=== PATIENT | female | born 1955 | race Caucasian/White ===

== ENCOUNTER 2018-06-26 16:41 | Inpatient (IN) | payer OTHER ==
--- NOTE | 2018-06-26 16:42 | HP ---
SUPERVISING PHYSICIAN: Som Meyer M.D. CHIEF COMPLAINT: Worsening shortness of breath and fever. HISTORY OF PRESENT ILLNESS: Ms. Valdez is a 62 year-old female patient of Dr. Salgado. She presented to Dr. Reilly's office today after she had been having 1 to 2 weeks of worsening symptoms that included body aches, chest congestion, subjective fever and ongoing productive purulent sputum with increasing shortness of breath both at rest and on exertion. She denied any ill contacts. Initial workup in the clinic on x-ray showed questionable bilateral pneumonia. Initial vital signs in the clinic showed that she was tachypneic with respirations greater than 25 with obvious shortness of breath, satting in the high 80s to low 90s on room air at rest. Given the patient's symptomology and findings on chest x-ray with concerns for community acquired pneumonia, Dr. Reilly requested the patient be directly admitted for ongoing treatment of community acquired pneumonia. PAST MEDICAL HISTORY: 1. Hypertension. 2. Hypothyroidism on supplementation. 3. History of asthma. PAST SURGICAL HISTORY: 1. Cholecystectomy in 2002. 2. Hysterectomy in 1985. 3. Two sections, on in 1932 and one 1875. CURRENT MEDICATIONS: 1. Ferrous sulfate iron supplement 1 capsule daily. 2. Synthroid 125 mcg daily. 3. Vitamin B12 injection 1,000 mcg monthly. 4. Amlodipine 5 mg as needed at bedtime. 5. Albuterol inhaler 2.5 mg q.i.d. as needed. ALLERGIES: ERYTHROMYCIN, MORPHINE AND SULFA ANTIBIOTICS. FAMILY HISTORY: Father at age 89 due to natural causes. Mother at age 39 secondary to brain tumor. She had 2 sisters and 2 brother, all healthy, but one older sister who has a history of atrial fibrillation and breast cancer. She has 2 children that are all healthy. SOCIAL HISTORY: The patient is a realtor. She lives in [place]. She is . She has 2 children. She denies alcohol. She has never smoked tobacco. She does not use illicit drugs. REVIEW OF SYSTEMS: CONSTITUTIONAL: Positive for fatigue, subjective fever and chills. Negative for unintentional weight loss. HEENT: Positive for ear aches bilaterally with nasal congestion, rhinorrhea and cough. Negative for sore throat. RESPIRATORY: Positive for increasing cough, productive sputum with increasing weakness and dyspnea. CARDIOVASCULAR: Negative for chest pains, palpitations, syncopal episodes or peripheral edema. GASTROINTESTINAL: Positive for nausea secondary to nasal drainage but negative for constipation, diarrhea or abdominal pains. SKIN: Negative for jaundice, rashes, lesions. NEUROLOGIC: Positive for headaches. Negative for ataxia, seizures, generalized weakness or other neurological deficits. PHYSICAL EXAMINATION: VITAL SIGNS: On admission, low-grade temperature of 99.4, heart rate 85, blood pressure 111/76, satting 97% at rest on room air, respirations between 18 and 23. In the clinic, she was noted to be mildly hypoxic with O2 saturations showing at 88 to 92% on room air at rest, secondary to with respirations greater than 25 with obvious shortness of breath. No respiratory distress. Admission weight 66.2 kg. GENERAL: The patient is ill-appearing. She appears to be well hydrated, well nourished. She appears to be slightly anxious in no obvious distress, but is showing some evidence of increased work of breathing, but improving with breathing treatments. HEENT: Tympanic membranes were clear bilaterally. Oropharynx was pink with posterior oropharynx being mildly erythematous, but no lesions, rashes or drainage. Nares were showing bilateral congestion with clear drainage. NECK: Supple, non-tender. Full range of motion. No jugular venous distention. CHEST: Lung sounds were diminished with some mild inspiratory and expiratory wheezing and faint rhonchi heard on the right lateral posterior aspect compared to the left. No rales. CARDIOVASCULAR: Regular rate and rhythm without appreciable murmurs, gallops, or rubs. ABDOMEN: Soft, non-tender. Positive bowel sounds. EXTREMITIES: Without any clubbing, cyanosis or edema. NEUROLOGIC: She is alert and oriented times three. Cranial nerves II-XII are grossly intact. SKIN: [place], warm and dry with no lesions or rashes noted. LABORATORY: White count was showing to be 10,800 but with a left shift. Hemoglobin 11.3, hematocrit 34.3, platelet count 390,000. Differential again showed a left shift. Chemistries showed just a mildly low potassium at 3.5, BUN 7, creatinine 0.74, lactic acid 0.9, magnesium was low at 1.6. Liver functions all were within normal limits. Urinalysis is pending. MICROBIOLOGY: Blood culture is pending. Sputum culture is pending. RADIOLOGY: Chest x-ray in the clinic showed bibasilar infiltrates per Dr. Reilly's interpretation. ASSESSMENT: 1. Exacerbation of asthma with developing community acquired pneumonia. 2. Electrolyte imbalance with hypokalemia. 3. Hypothyroidism on supplementation. 4. Hypertension, controlled. PLAN: The patient will be directly admitted to the Medical/Surgical floor for ongoing treatment of community acquired pneumonia, bilateral presentation with exacerbation of asthma. I did start her on a single dose of Solu-Medrol with q.i.d. DuoNeb treatments and chest percussive therapy as tolerated. She will be on antibiotic coverage with Rocephin and doxycycline given her allergies to erythromycin. Will await culture results both on sputum and blood cultures to further target antibiotic therapy. Will repeat labs in the morning, including a CBC, BMP as well as repeat chest x-ray. She will be on DVT prophylaxis as per protocol. Will review and verify her medications and resume as appropriate. Will anticipate her length of stay to be at least 2 to 3 days. Until she can transition back to outpatient management on oral antibiotic therapy, will continue to monitor and treat as needed. #[id number] [facility]
[2018-06-26] MEDS ORDERED: ALBUTEROL SULFATE 2.5 MG/3 ML VIAL NEB PRN (16:58)
[2018-06-26] MEDS ORDERED: MAGNESIUM HYDROXIDE 30 ML UD PO PRN (16:58)
[2018-06-26] MEDS ORDERED: SODIUM CHLORIDE 0.9% (FLUSH) 10 ML SYG IV PRN (16:58)
[2018-06-26] MEDS ORDERED: methylPREDNISolone SODIUM SUC 125 MG/2 ML VIAL IV ONE (17:04)
[2018-06-26] MEDS: IPRATROPIUM/ALBUTEROL 3 ML VIAL INH SCH ×2 (17:12→21:05)
[2018-06-26] MEDS ORDERED: SODIUM CHL 0.9% 50ML MIN-BAG+ 50 ML IVPB ONE (17:52)
[2018-06-26] MEDS ORDERED: DOXYCYCLINE HYCLATE IV 100 MG VIAL IVPB ONE ×2 (17:52→19:29)
[2018-06-26] MEDS ORDERED: cefTRIAXone SODIUM 1 GM VIAL ONE (17:52)
[2018-06-26] MEDS ORDERED: SODIUM CHLORIDE 0.9% 250ML 250 ML ONE ×2 (17:53→19:29)
[2018-06-26] MEDS: ACETAMINOPHEN 325 MG TAB PO PRN (18:05)
[2018-06-26] MEDS: IV SET AND CAP CHANGE INJ INJ SCH (18:06)
[2018-06-26] MEDS: cefTRIAXone SODIUM 1 GM in SODIUM CHL 0.9% 50ML MIN-BAG+ 50 ML IVPB SCH (18:06)
[2018-06-26] MEDS: DOXYCYCLINE HYCLATE IV 100 MG in SODIUM CHLORIDE 0.9% 250ML 250 ML IVPB SCH (18:06)
[2018-06-26] MEDS ORDERED: MAGNESIUM SULFATE PREMIX 2GM 2 GM in PREMIX BAG 1 BAG IVPB ONE (19:41)
[2018-06-26] MEDS ORDERED: MAGNESIUM SULFATE PREMIX 2GM 50 ML IVPB ONE (20:07)
[2018-06-26] MEDS: BUDESONIDE NEBS 0.5 MG/2 ML VIAL NEB SCH (21:05)
[2018-06-26] MEDS: PROMETHAZINE W/CODEINE SYR 5 ML UD PO PRN (22:37)
[2018-06-27] MEDS: ACETAMINOPHEN 325 MG TAB PO PRN ×4 (00:15→21:31)
[2018-06-27] MEDS ORDERED: LEVOTHYROXINE SODIUM 0.1 MG TAB ONE ×2 (05:30→19:07)
[2018-06-27] MEDS ORDERED: LEVOTHYROXINE SODIUM 0.025 MG TAB ONE ×2 (05:30→19:07)
[2018-06-27] MEDS: DOXYCYCLINE HYCLATE IV 100 MG in SODIUM CHLORIDE 0.9% 250ML 250 ML IVPB SCH ×2 (05:35→17:20)
[2018-06-27] MEDS: LEVOTHYROXINE SODIUM 0.1 MG, LEVOTHYROXINE SODIUM 0.025 MG PO SCH ×2 (06:04)
[2018-06-27] MEDS: PANTOPRAZOLE SODIUM IV 40 MG VIAL IV SCH (06:04)
--- NOTE | 2018-06-27 07:23 | RAD ---
CHEST 06/27/2018 CLINICAL HISTORY: Pneumonia COMPARISON: None TECHNIQUE: Frontal and lateral Chest. FINDINGS: There are patchy airspace densities within both lower lobes and lingula consistent with pneumonia. No pleural fluid. No edema. No pneumothorax. Heart is normal in size. Normal cardiomediastinal contours. Small focus of right upper lobe pneumonitis. Unremarkable soft tissues. Intact bones. Surgical clips in the upper abdomen from prior cholecystectomy. IMPRESSION: 1. Bilateral lower lobe and lingula pneumonia. Small focus of right upper lobe pneumonia. Electronically signed by: Clarissa Joseph DO 06/27/2018 7:20 AM CDT
[2018-06-27] MEDS: ENOXAPARIN SODIUM 40 MG/0.4 ML SYG SUBCU SCH (08:25)
[2018-06-27] MEDS: BUDESONIDE NEBS 0.5 MG/2 ML VIAL NEB SCH ×2 (08:34→20:01)
[2018-06-27] MEDS: IPRATROPIUM/ALBUTEROL 3 ML VIAL INH SCH ×4 (08:34→20:01)
[2018-06-27] MEDS ORDERED: NON-FORMULARY MEDICATION 1 EA MIS (Levothyroxine Sodium [Synthroid] 125 MCG) PO SCH (09:00)
[2018-06-27] MEDS: guaiFENesin ER TAB 600 MG TAB PO SCH ×2 (15:25→21:31)
[2018-06-27] MEDS ORDERED: SODIUM CHL 0.9% 50ML MIN-BAG+ 50 ML IVPB ONE (16:35)
[2018-06-27] MEDS ORDERED: cefTRIAXone SODIUM 1 GM VIAL ONE (16:36)
[2018-06-27] MEDS: cefTRIAXone SODIUM 1 GM in SODIUM CHL 0.9% 50ML MIN-BAG+ 50 ML IVPB SCH (16:40)
[2018-06-27] MEDS ORDERED: SODIUM CHLORIDE 0.9% 250ML 250 ML ONE ×2 (17:15→19:07)
[2018-06-27] MEDS ORDERED: DOXYCYCLINE HYCLATE IV 100 MG VIAL IVPB ONE ×2 (17:15→19:08)
[2018-06-27] MEDS: PROMETHAZINE W/CODEINE SYR 5 ML UD PO PRN (21:31)
[2018-06-28] MEDS: DOXYCYCLINE HYCLATE IV 100 MG in SODIUM CHLORIDE 0.9% 250ML 250 ML IVPB SCH ×2 (05:40→17:38)
[2018-06-28] MEDS: guaiFENesin W/CODEINE LIQ 10 ML UD PO PRN ×2 (05:47→15:54)
[2018-06-28] MEDS: LEVOTHYROXINE SODIUM 0.1 MG, LEVOTHYROXINE SODIUM 0.025 MG PO SCH ×2 (06:08)
[2018-06-28] MEDS: PANTOPRAZOLE SODIUM IV 40 MG VIAL IV SCH (06:08)
--- NOTE | 2018-06-28 07:57 | PN ---
SUPERVISING PHYSICIAN: Som Meyer MD DATE: 06/27/18 SUBJECTIVE: The patient has had a fairly restless night. She was not able to sleep and had a significant cough throughout the night, even though she was given some Phenergan and codeine. I explained to her that part of the restlessness probably was the single dose of Solu-Medrol. She has had no nausea or vomiting, no chest pain. OBJECTIVE: VITAL SIGNS: Temperature 97.6, pulse 94, blood pressure 120/65, respirations 20, saturation 94% on room air. Weight 56.9 kg. GENERAL: The patient is resting comfortably, visiting with family members. She is alert. CHEST: Lung sounds are diminished with bilateral rhonchi more prominent on the left, more so on the posterolateral aspect. No wheezing or rales noted. HEART: Regular rate and rhythm. ABDOMEN: Soft, non-tender, positive bowel sounds. EXTREMITIES: Without edema. NEUROLOGICAL: She is alert and oriented x3. LABORATORY: White count is 8,100, hemoglobin stable at 11.8, hematocrit 35.5. Platelet count 412,000, differential did show a left shift. Chemistries show normal electrolytes with 4.1 potassium and BUN of 8, creatinine 0.75. Liver functions all within normal limits. MICROBIOLOGY: Blood cultures pending, negative at 24 hours. RADIOLOGY: Chest x-ray, 2-view chest, per radiology interpretation shows bilateral lower lobe and lingular pneumonia with a small focus of right lower lobe pneumonia. ASSESSMENT: 1. Bilateral pneumonia, community acquired with exacerbation of asthma.. 2. Electrolyte imbalance with hypokalemia, resolved with fluids. 3. Hypothyroidism. 4. Hypertension, controlled. PLAN: The patient will be continued on antibiotics for bilateral pneumonia, community acquired, with Rocephin and doxycycline given that she is allergic to mycin. I did discuss with her that if she does not improve clinically, we may need to change to Levaquin to have better coverage for atypicals but at this point I think we are fairly well covered. She continues on t.i.d. Duoneb treatments and chest percussion therapy. Will follow labs and x-rays as needed. We will anticipate hopefully discharging by Tuesday and until she can transition to outpatient management we will continue to monitor and treat as needed. #[id number] [facility]
[2018-06-28] MEDS: ACETAMINOPHEN 325 MG TAB PO PRN ×2 (08:02→11:51)
[2018-06-28] MEDS: guaiFENesin ER TAB 600 MG TAB PO SCH ×2 (08:19→20:30)
[2018-06-28] MEDS: ENOXAPARIN SODIUM 40 MG/0.4 ML SYG SUBCU SCH (08:19)
[2018-06-28] MEDS: BUDESONIDE NEBS 0.5 MG/2 ML VIAL NEB SCH ×2 (08:48→20:00)
[2018-06-28] MEDS: IPRATROPIUM/ALBUTEROL 3 ML VIAL INH SCH ×4 (08:48→20:00)
[2018-06-28] MEDS ORDERED: cefTRIAXone SODIUM 1 GM in SODIUM CHL 0.9% 50ML MIN-BAG+ 50 ML IVPB ONE (09:30)
[2018-06-28] MEDS ORDERED: SODIUM CHL 0.9% 50ML MIN-BAG+ 50 ML IVPB ONE ×2 (09:36→16:45)
[2018-06-28] MEDS ORDERED: cefTRIAXone SODIUM 1 GM VIAL ONE ×2 (09:37→16:46)
--- NOTE | 2018-06-28 10:29 | PN ---
SUPERVISING PHYSICIAN: Adam Meyer MD DATE: 06/28/18 SUBJECTIVE: The patient is sitting up in bed. Family is at the bedside. She continues complaints of mild dry cough, but guaifenesin is helping. She does have problems with chronic constipation, but nothing significant at this time. She was concerned that Rocephin dose was not hooked up to her IV this morning and ended up on the floor, so I will give her an additional dose of that today. Otherwise, she denies shortness of breath, chest pain, nausea or vomiting. OBJECTIVE: VITAL SIGNS: Temperature 98.8. Heart rate 83. Blood pressure 111/69. Respiratory rate 18. O2 saturation 92% on room air. RESPIRATORY: Scattered rhonchi throughout with no expiratory wheezing or crackles. CARDIAC: Regular rate and rhythm. GASTROINTESTINAL: Abdomen is soft, nondistended, nontender. Bowel sounds are positive. NEUROLOGIC: Awake, alert and oriented times three. LABORATORY: Preliminary blood cultures show no growth after 24 hours. All other labs and films have been reviewed via the EMR. ASSESSMENT: 1. Bilateral pneumonia, community acquired with exacerbation of asthma.. 2. Electrolyte imbalance with hypokalemia, resolved with fluids. 3. Hypothyroidism. 4. Hypertension, controlled. PLAN: We will continue present supportive care. We will continue her antibiotics for bilateral pneumonia. I have given her an extra dose of Rocephin today since her Rocephin was not infused this morning. She will continue with the doxycycline. I have encouraged good pulmonary hygiene as well as to get up and ambulate as much as possible. I have ordered lab and x-ray for in the morning. Hopefully she can be discharged tomorrow or the next day. We will continue to monitor the patient closely and follow as needed. #[id number] [facility]
[2018-06-28] MEDS ORDERED: ACETAMINOPHEN 325 MG TAB PO ONE (11:44)
[2018-06-28] MEDS: ONDANSETRON INJ 4 MG/2 ML VIAL IV PRN (11:52)
[2018-06-28] MEDS ORDERED: ALOE VERA CAPSULE PO PRN (15:37)
[2018-06-28] MEDS: HYDROcodone 5MG/APAP 325MG 1 EA TAB PO PRN ×2 (16:16→20:27)
[2018-06-28] MEDS: cefTRIAXone SODIUM 1 GM in SODIUM CHL 0.9% 50ML MIN-BAG+ 50 ML IVPB SCH (16:50)
[2018-06-28] MEDS ORDERED: methylPREDNISolone SODIUM SUC 125 MG/2 ML VIAL IV ONE (17:19)
[2018-06-28] MEDS ORDERED: DOXYCYCLINE HYCLATE IV 100 MG VIAL IVPB ONE ×2 (17:30→19:35)
[2018-06-28] MEDS ORDERED: SODIUM CHLORIDE 0.9% 250ML 250 ML ONE ×2 (17:31→19:34)
[2018-06-28] MEDS ORDERED: LEVOTHYROXINE SODIUM 0.1 MG TAB ONE (19:34)
[2018-06-28] MEDS ORDERED: LEVOTHYROXINE SODIUM 0.025 MG TAB ONE (19:34)
[2018-06-28] MEDS: MELATONIN 5 MG TABLET PO SCH (20:30)
[2018-06-28] MEDS ORDERED: MELATONIN 3 MG TAB PO SCH (21:00)
[2018-06-28] MEDS: TEMAZEPAM 15 MG CAP PO PRN (21:44)
[2018-06-28] MEDS: methylPREDNISolone SODIUM SUC 125 MG/2 ML VIAL IV SCH (21:45)
[2018-06-29] MEDS: DOXYCYCLINE HYCLATE IV 100 MG in SODIUM CHLORIDE 0.9% 250ML 250 ML IVPB SCH ×2 (06:04→17:24)
[2018-06-29] MEDS: methylPREDNISolone SODIUM SUC 125 MG/2 ML VIAL IV SCH (06:07)
[2018-06-29] MEDS: LEVOTHYROXINE SODIUM 0.1 MG, LEVOTHYROXINE SODIUM 0.025 MG PO SCH ×2 (06:08)
[2018-06-29] MEDS: PANTOPRAZOLE SODIUM IV 40 MG VIAL IV SCH (06:08)
[2018-06-29] MEDS: HYDROcodone 5MG/APAP 325MG 1 EA TAB PO PRN ×3 (06:26→20:41)
--- NOTE | 2018-06-29 07:52 | RAD ---
EXAM DESCRIPTION: Chest,2 Views CLINICAL HISTORY: 62 years Female, pna COMPARISON: 06/27/2018 IMPRESSION: The cardiomediastinal silhouette is stable in size. Multifocal bibasilar airspace consolidation again demonstrated. Consolidation is slightly worsened in the right lower lung zone and left perihilar lung zone. The findings remain most consistent with multifocal pneumonia. Small bilateral pleural effusions suspected. No pneumothorax. No acute osseous abnormality. Electronically signed by: Eduardo Cooper MD 06/29/2018 7:49 AM CDT
[2018-06-29] MEDS: IPRATROPIUM/ALBUTEROL 3 ML VIAL INH SCH ×4 (08:02→19:30)
[2018-06-29] MEDS: BUDESONIDE NEBS 0.5 MG/2 ML VIAL NEB SCH ×2 (08:02→19:30)
[2018-06-29] MEDS: ONDANSETRON INJ 4 MG/2 ML VIAL IV PRN ×3 (08:35→19:43)
[2018-06-29] MEDS: guaiFENesin ER TAB 600 MG TAB PO SCH ×2 (08:36→20:40)
[2018-06-29] MEDS: ENOXAPARIN SODIUM 40 MG/0.4 ML SYG SUBCU SCH (08:36)
--- NOTE | 2018-06-29 10:38 | PN ---
SUPERVISING PHYSICIAN: Adam Meyer MD DATE: 06/29/18 SUBJECTIVE: The patient is sitting up in bed. Her is at the bedside. She continues complaints of extreme weakness and shortness of breath. Her coughing has improved. We discussed pneumonia and her plan of care. Otherwise, she denies chest pain, nausea, vomiting, constipation or diarrhea. OBJECTIVE: VITAL SIGNS: Temperature 98.2. Heart rate 95. Blood pressure 130/80. Respiratory rate 16. O2 saturation 91% on room air. RESPIRATORY: Scattered rhonchi throughout. She does get slightly tachypneic at times, but mostly with talking. CARDIAC: Regular rate and rhythm. GASTROINTESTINAL: Abdomen is soft, nondistended, nontender. Bowel sounds are positive. NEUROLOGIC: Awake, alert and oriented times three. LABORATORY: WBCs 10,000, hemoglobin 11, hematocrit 33.9. Neutrophils 90.9. Electrolytes are basically within normal limits. Preliminary blood cultures show no growth after 48 hours. Sputum culture is negative. Chest x-ray shows multifocal bibasilar airspace consolidation again demonstrated. Consolidation is slightly worsened in the right lower lung zone and left perihilar lung zone. The findings remain most consistent with multifocal pneumonia. Small bilateral pleural effusions suspected and no pneumothorax. No acute osseus abnormality. All other labs and films have been reviewed via the EMR. ASSESSMENT: 1. Bilateral pneumonia, community acquired with exacerbation of asthma. 2. Electrolyte imbalance with hypokalemia, resolved with fluids. 3. Hypothyroidism. 4. Hypertension, controlled. PLAN: We will continue present supportive care. I have also ordered extra CPT and aggressive pulmonary hygiene. I will titrate down her IV steroids. Hopefully in the next day or so, she can go to p.o. steroids. We will also monitor her cultures as well as her clinical response. I have encouraged her to ambulate in the halls. I have ordered a chest x-ray for in the morning. Otherwise, we will continue to monitor the patient closely and follow as needed. [facility][id number] [facility]
[2018-06-29] MEDS: methylPREDNISolone SODIUM SUC 40 MG/ML VIAL IV SCH ×2 (13:33→21:20)
[2018-06-29] MEDS ORDERED: SODIUM CHL 0.9% 50ML MIN-BAG+ 50 ML IVPB ONE (16:14)
[2018-06-29] MEDS ORDERED: cefTRIAXone SODIUM 1 GM VIAL ONE (16:15)
[2018-06-29] MEDS: cefTRIAXone SODIUM 1 GM in SODIUM CHL 0.9% 50ML MIN-BAG+ 50 ML IVPB SCH (16:45)
[2018-06-29] MEDS ORDERED: SODIUM CHLORIDE 0.9% 250ML 250 ML ONE ×2 (17:19→19:04)
[2018-06-29] MEDS ORDERED: DOXYCYCLINE HYCLATE IV 100 MG VIAL IVPB ONE ×2 (17:19→19:05)
[2018-06-29] MEDS: IV SET AND CAP CHANGE INJ INJ SCH (17:45)
[2018-06-29] MEDS ORDERED: LEVOTHYROXINE SODIUM 0.025 MG TAB ONE (19:04)
[2018-06-29] MEDS ORDERED: LEVOTHYROXINE SODIUM 0.1 MG TAB ONE (19:04)
[2018-06-29] MEDS ORDERED: PANTOPRAZOLE SODIUM IV 40 MG VIAL ONE (19:05)
[2018-06-29] MEDS: TEMAZEPAM 15 MG CAP PO PRN (20:40)
[2018-06-29] MEDS: PROMETHAZINE W/CODEINE SYR 5 ML UD PO PRN (20:40)
[2018-06-29] MEDS: MELATONIN 5 MG TABLET PO SCH (20:41)
[2018-06-30] MEDS: DOXYCYCLINE HYCLATE IV 100 MG in SODIUM CHLORIDE 0.9% 250ML 250 ML IVPB SCH (05:23)
[2018-06-30] MEDS: LEVOTHYROXINE SODIUM 0.1 MG, LEVOTHYROXINE SODIUM 0.025 MG PO SCH ×2 (06:12)
[2018-06-30] MEDS: PANTOPRAZOLE SODIUM IV 40 MG VIAL IV SCH (06:12)
[2018-06-30] MEDS: methylPREDNISolone SODIUM SUC 40 MG/ML VIAL IV SCH (06:13)
[2018-06-30] MEDS ORDERED: PANTOPRAZOLE SODIUM TAB 40 MG PO SCH (06:30)
[2018-06-30 06:37] VITALS: BP 119/69; TEMP 98
--- NOTE | 2018-06-30 07:03 | RAD ---
Chest 2 view on 06/30/2018 CLINICAL INDICATION: Pneumonia COMPARISON: 06/29/2018 FINDINGS: There has been no significant change in bilateral mid and lower lung opacities consistent with bilateral pneumonia. Cardiac, hilar and mediastinal contours are within normal limits. No bony abnormality is noted. IMPRESSION: No significant change in the appearance of the chest. Electronically signed by: Johnathan Bryant 06/30/2018 6:59 AM CDT
[2018-06-30] MEDS: ONDANSETRON INJ 4 MG/2 ML VIAL IV PRN (07:33)
[2018-06-30] MEDS: HYDROcodone 5MG/APAP 325MG 1 EA TAB PO PRN (07:34)
[2018-06-30] MEDS: guaiFENesin ER TAB 600 MG TAB PO SCH (08:35)
[2018-06-30] MEDS: ENOXAPARIN SODIUM 40 MG/0.4 ML SYG SUBCU SCH (08:38)
[2018-06-30] MEDS ORDERED: predniSONE 20 MG TAB PO SCH (09:00)
[2018-06-30] MEDS: BUDESONIDE NEBS 0.5 MG/2 ML VIAL NEB SCH (09:35)
[2018-06-30] MEDS: IPRATROPIUM/ALBUTEROL 3 ML VIAL INH SCH (09:35)
[2018-06-30 11:12] VITALS: O2SAT 99
--- NOTE | 2018-07-02 20:55 | DS ---
SUPERVISING PHYSICIAN: Som Meyer M.D. ADMISSION DIAGNOSIS: 1. Exacerbation of asthma with developing community acquired pneumonia. 2. Electrolyte imbalance with hypokalemia. 3. Hypothyroidism on supplementation. 4. Hypertension, controlled. DISCHARGE DIAGNOSIS: 1. Bilateral pneumonia, community acquired with exacerbation of asthma, improving with more aggressive treatment with corticosteroids, antibiotics and chest percussive therapy. 2. Electrolyte imbalance with hypokalemia, resolved with fluids. 3. Hypothyroidism. 4. Hypertension, controlled. REASON FOR HOSPITALIZATION: Ms. Valdez is a 62 year-old female patient of Dr. Salgado. She presented to Dr. Reilly's office today after she had been having 1 to 2 weeks of worsening symptoms that included body aches, chest congestion, subjective fever and ongoing productive purulent sputum with increasing shortness of breath both at rest and on exertion. She denied any ill contacts. Initial workup in the clinic on x-ray showed questionable bilateral pneumonia. Initial vital signs in the clinic showed that she was tachypneic with respirations greater than 25 with obvious shortness of breath, satting in the high 80s to low 90s on room air at rest. Given the patient's symptomology and findings on chest x-ray with concerns for community acquired pneumonia, Dr. Reilly requested the patient be directly admitted for ongoing treatment of community acquired pneumonia. LABORATORY STUDIES: White count on admission was 10,800, at discharge was 10,000. Hemoglobin and hematocrit were showing to be stable, at discharge was 11 and 33.9 respectively. Platelet count 437,000. Differential did show a left shift but she was on steroids while in the hospital. Chemistries showed just some mildly low potassium on admission at 3.5, otherwise at discharge electrolytes were within normal limits. Potassium 4.1, BUN 8, creatinine 0.56. Magnesium was low at 1.6 on admission but with replacement it normalized to 1.9. Liver functions are showing to all be within normal limits. Urinalysis showed just a trace of blood. MICROBIOLOGY: Sputum culture is still pending. Blood cultures at 5 days were negative. RADIOLOGY: She had a chest x-ray on the day after admission and per radiology interpretation of a two view chest showed bilateral lower lobe and lingula pneumonia. Small focus of upper lobe pneumonia. This was followed-up with multiple chest x-rays. On 06/30/18 at discharge, last x-ray was showing per radiology interpretation no significant change in the appearance of the chest. HOSPITAL COURSE: Ms. Valdez was admitted for community acquired pneumonia and exacerbation of asthma. She was started on treatment with antibiotics to include doxycycline because she is allergic to Macrobid and Rocephin. She required initiation of corticosteroids. She had aggressive pulmonary hygiene while she was here. She did show good progress clinically but it was slow, but on day of discharge was showing improvement well enough to continue with outpatient management. She had no other complications while in the hospital. Vital signs at discharge showed temperature 98, pulse 81, blood pressure 119/69, respirations 16, satting 99% on room air. PLAN: Ms. Valdez was discharges on 06/30/18 with instructions to followup with Dr. Reilly in the following week and to call his office on Tuesday for a followup appointment. She was to resume her home medications as previously instructed and told to return to the hospital should she have any worsening or concerning symptoms. Diet at discharge was regular. Activity is normal activity as tolerated. Prescriptions provided at discharge included: 1. Zofran 8 mg every 6 hours as needed, #15. No refills. 2. Albuterol 2.5 mg nebulizer every 4 hours as needed. One refill. 3. Mucinex 1200 mg twice daily for at least 10 days. No refills. 4. Levaquin 750 mg every day, #5. 5. Medrol Dosepak 4 mg every day for 6 days as directed, taper dose. 6. Phenergan with codeine 5 mL every 4 hours as needed for cough. Condition at discharge was stable and improving. DISPOSITION: The patient is discharged home to the care of family members. [facility][id number] [facility]
== END 2018-06-30 13:24 | disposition home or self-care (01) | DRG 202 ==
LOC: MS 16:41
PROVIDERS: ADMIT Nurse Practitioner Family; ATTEND Nurse Practitioner Family
DX: J45.901 Unspecified asthma with (acute) exacerbation (principal); J18.1 Lobar pneumonia, unspecified organism; E87.6 Hypokalemia; E03.9 Hypothyroidism, unspecified; I10 Essential (primary) hypertension; Z88.1 Allergy status to other antibiotic agents; Z88.2 Allergy status to sulfonamides; Z88.5 Allergy status to narcotic agent; Z79.899 Other long term (current) drug therapy

== ENCOUNTER → 2018-12-25 | Outpatient (CLI) | payer MEDICARE, OTHER | LOC: GMA MATASK 16:41 | PROVIDERS: ATTEND Family Medicine | DX: R50.9 Fever, unspecified (principal); R05 Cough; R30.0 Dysuria ==